=== PATIENT | male | born 1960 | race Caucasian/White ===

== ENCOUNTER → 2016-11-15 | Outpatient (CLI) | payer OTHER ==
[~2016-11-15] MED LIST: GLUC1CAP33 PO; MULT-506 PO; WARF10TA4 PO; WARF5TAB90 PO
[2016-11-15 12:53] LABS: MEAN CELL VOLUME 92.6 fL (80-100); MEAN CORPUSCULAR HEMOGLOBIN 32.1 pg (25-34); MEAN CORPUSCULAR HGB CONC 34.7 g/dl (32-36); MEAN PLATELET VOLUME 8.4 fL (7.4-10.4); PLATELET COUNT 233 K/uL (130-400); RED BLOOD COUNT 5.29 M/uL (4.7-6.1); WHITE BLOOD COUNT 5.67 K/uL (4.8-10.8)
[2016-11-15 13:15] LABS: ALT/SGPT 50 U/L (12-78); AST/SGOT 19 U/L (15-37); BLOOD UREA NITROGEN 16 mg/dl (7-18); BUN/CREATININE RATIO 17.4 (10-20); CALCIUM 8.6 mg/dl (8.5-10.1); CARBON DIOXIDE 26 mmol/L (21-32); CHLORIDE 106 mmol/L (98-107); CHOLESTEROL 198 mg/dl (0-200); CREATININE 0.91 mg/dl (0.60-1.40); GLUCOSE 92 mg/dl (70-99); POTASSIUM 4.7 mmol/L (3.5-5.1); SODIUM 140 mmol/L (136-145)
[2016-11-15 13:21] LABS: ALB/GLOB RATIO 1.3 (0.9-2); ALKALINE PHOSPHATASE 59 U/L (45-117); CHOLESTEROL/HDL RATIO 4.4; HDL CHOLESTEROL 45 mg/dl; LDL CHOLESTEROL CALCULATED 130 mg/dl; TRIGLYCERIDES 115 mg/dl (0-150); VERY LOW DENSITY LIPOPROT CALC 23 mg/dl
== END | disposition home or self-care (01) ==
LOC: C.LABBFT 09:34
PROVIDERS: ATTEND Internal Medicine
DX: E78.5 Hyperlipidemia, unspecified (principal); Z12.5 Encounter for screening for malignant neoplasm of prostate

== ENCOUNTER → 2017-09-11 | Outpatient (CLI) | payer OTHER ==
[~2017-09-11] MED LIST changes: -WARF5TAB90 PO
--- NOTE | 2017-09-11 19:03 | DIAGNOSTIC IMAGING REPORT ---
ULTRASOUND RIGHT LOWER EXTREMITY VENOUS CLINICAL HISTORY: Right calf pain. COMPARISON STUDY: No priors. TECHNIQUE: Real-time, grayscale, and color Doppler sonography of the deep veins of the right lower extremity was performed from the inguinal crease to the calf. Compression and augmentation were utilized. FINDINGS: There is no sonographic evidence of deep venous thrombosis identified in the right lower extremity. The common femoral, superficial femoral, and popliteal veins are patent and normally compressible. The greater saphenous vein and the profunda femoris vein at the junction with the common femoral vein are clear. The visualized calf veins are patent. IMPRESSION: There is no sonographic evidence of deep venous thrombosis identified in the right lower extremity. Electronically signed by: Santana Causey M.D. 09/11/2017 7:02 PM Dictated Date/Time: 09/11/2017 7:02 PM
== END | disposition home or self-care (01) ==
LOC: C.ULTR 18:18
PROVIDERS: ATTEND Nurse Practitioner
DX: M79.661 Pain in right lower leg (principal); Z86.718 Personal history of other venous thrombosis and embolism

== ENCOUNTER → 2018-01-02 | Outpatient (CLI) | payer OTHER ==
--- NOTE | 2018-01-02 15:42 | DIAGNOSTIC IMAGING REPORT ---
RIGHT LOWER EXTREMITY VENOUS DOPPLER HISTORY: M79.661 Right calf paincall [id number] COMPARISON STUDY: Right leg venous doppler 09/11/2017. FINDINGS: There is normal compressibility, flow, and augmentation within the right lower extremity deep venous system. Within the popliteal fossa there is nonocclusive linear echogenic focus within a superficial vein consistent with a nonocclusive thrombus. IMPRESSION: 1. No DVT within the right lower extremity. 2. Nonocclusive thrombus within a superficial vein at the popliteal fossa. This has a linear and echogenic appearance and may represent chronic thrombus. Electronically signed by: Leonard Sanon M.D. 01/02/2018 3:41 PM Dictated Date/Time: 01/02/2018 3:40 PM
== END | disposition home or self-care (01) ==
LOC: C.ULTR 15:03
PROVIDERS: ATTEND Physician Assistant Medical
DX: I82.811 Embolism and thrombosis of superficial veins of right lower extremity (principal)